=== PATIENT | female | born 1955 | race Hispanic/Latino ===

== ENCOUNTER 2024-03-17 07:32 | Day surgery (SDC) | payer MEDICARE, MEDICAID ==
[~2024-03-17] VITALS: Ht 157.5 cm; Wt 63.5 kg
[~2024-03-17 07:32] MED LIST: CALCIUM D3; CRESTOR5 MG PO; HYDROCHLOROT25 MG PO; PREVACID15 M1 PO; PREVACID30 M1 PO
[2024-03-17] MEDS ORDERED: FAMOTIDINE 10MG/ML 2ML SDV IV ONE (07:35)
[2024-03-17] MEDS ORDERED: SODIUM CHLORIDE 0.9% 0 ML IV ONE (07:35)
[2024-03-17] MEDS ORDERED: LACTATED RINGER'S 1,000 ML IV ONE (07:37)
[2024-03-17] MEDS ORDERED: MULT VITAMIN PO (07:48)
[2024-03-17] MEDS ORDERED: PEPCID20 MG PO (07:49)
[2024-03-17] MEDS ORDERED: AMBIEN5 MG PO (07:50)
[2024-03-17 09:38] VITALS: BP 136/66
[2024-03-17] MEDS ORDERED: LIDOCAINE HCL 2% 2ML SDV IV ONE (12:33)
[2024-03-17] MEDS ORDERED: PROPOFOL 200 MG/20 ML VIAL IV ONE (12:33)
== END 2024-03-17 10:00 | disposition home or self-care (01) ==
LOC: ENDO 07:32 → ORM 08:00 → ENDO 08:00
PROVIDERS: ATTEND Surgery
PROC: 0DB98ZX Excision of Duodenum, Via Natural or Artificial Opening Endoscopic, Diagnostic (ICD-10-PCS; principal; 2024-03-17)
PROC: 0DB78ZX Excision of Stomach, Pylorus, Via Natural or Artificial Opening Endoscopic, Diagnostic (ICD-10-PCS; 2024-03-17)
PROC: 0DB68ZX Excision of Stomach, Via Natural or Artificial Opening Endoscopic, Diagnostic (ICD-10-PCS; 2024-03-17)
DX: K29.70 Gastritis, unspecified, without bleeding (principal); K29.80 Duodenitis without bleeding; K44.9 Diaphragmatic hernia without obstruction or gangrene; K31.89 Other diseases of stomach and duodenum; I10 Essential (primary) hypertension; Z79.899 Other long term (current) drug therapy; Z87.11 Personal history of peptic ulcer disease